=== PATIENT | female | born 1985 | race African-American/Black ===

== ENCOUNTER 2016-06-23 12:47 | Outpatient (CLI) | payer OTHER ==
[2016-06-23 13:26] LABS: Hemoglobin A1c 5.1 % (4.0-6.0)
[2016-06-23 13:31] LABS: ALT (SGPT) 12 U/L (8-55); AST (SGOT) 19 U/L (5-34); Albumin 4.5 g/dL (3.5-5.0); Alkaline Phosphatase 49 U/L (40-150); Anion Gap 13 mmol/L (10-20); BUN (Urea Nitrogen) 7 mg/dL (7.0-18.7); Bilirubin, Total 0.6 mg/dL (0.2-1.2); Calc. Creatinine Clearance 0 mL/min (70-130); Calcium 9.9 mg/dL (7.8-10.44); Carbon Dioxide 25 mmol/L (22-29); Chloride 104 mmol/L (98-107); Cholesterol 224 mg/dl (< 200 Desired); Estimated GFR-MDRD 81; Globulin 3.2 g/dL (2.4-3.5); Glucose 79 mg/dL (70-105); HDL Cholesterol 75 mg/dL (>60 Neg Risk); LDL Cholesterol, Calculated 138 mg/dL; Potassium 3.7 mmol/L (3.5-5.1); Protein, Total 7.7 g/dL (6.0-8.3); Sodium 138 mmol/L (136-145); Triglycerides 55 mg/dL (Less than 150)
[2016-06-23 13:35] LABS: #Basophils 0.1 thou/uL (0.0-0.2); #Eosinphils 0.2 thou/uL (0.0-0.7); #Lymphocytes 2.3 thou/uL (1.20-3.40); #Monocytes 0.5 thou/uL (0.11-0.59); %Basophils 2.3 % (0.0-1.0); %Eosinophils 3.6 % (0.0-10.0); %Lymphocytes 37.5 % (21.0-51.0); %Monocytes 8.3 % (0.0-10.0); %Neutrophils 48.3 % (42.0-75.0); Hemoglobin 14.8 g/dL (12.0-16.0); Mean Corpuscular HGB CONC 34.2 g/dL (32.0-36.0); Mean Corpuscular Hemoglobin 31.5 pg (27.0-31.0); Mean Corpuscular Volume 92.1 fl (81.0-99.0); Mean Platelet Volume 6.4 fL (7.4-10.4); Platelet Count 253 thou/uL (130-400); Red Blood Cell (RBC) Count 4.68 mill/uL (4.20-5.40); White Blood Cell (WBC) Count 6.2 thou/uL (4.8-10.8)
[2016-06-23 14:07] LABS: Thyroid Stimulating Hormone 0.9379 uIU/mL (0.35-4.94); Vitamin D, 25 Hydroxy 16.5 ng/ml (> 30.0)
== END 2016-06-23 12:48 ==
LOC: MADLABBHPM 12:47
PROVIDERS: ATTEND Family Medicine
DX: Z01.419 Encounter for gynecological examination (general) (routine) without abnormal findings (principal)
CPT/HCPCS: 36415; 80053; 80061; 82306; 83036; 84443; 85025; 87480; 87491; 87510; 87591; 87660